=== PATIENT | male | born 1955 | race Caucasian/White ===

== ENCOUNTER → 2019-05-28 | Outpatient (CLI) | payer MEDICARE ==
[~2019-05-28] MED LIST: ARIP30 PO; CHOL10002 PO; CLON.5 PO; DULOXETINE 30 MG; LATUDA40 MG PO; LOXA10 PO; MECL25 PO; OMEP20ER PO; PRAZ2 PO; RANI150 PO; RISP2; RXLORA1 PO; VIIBRYD PO
[2019-05-28 19:04] LABS: U Amphetamine Screen Not Detected; U Barbituate Screen Not Detected; U Benzodiazapine Screen Not Detected; U Buprenorphine Screen Not Detected; U Cannabinoids Screen Not Detected; U Cocaine Screen Not Detected; U Methadone Screen Not Detected; U Methamphetamine Screen Not Detected; U Opiates Screen Not Detected; U Oxycodone Screen Not Detected; U Phencyclidine Screen Not Detected; U Propoxyphene Screen Not Detected
== END | disposition home or self-care (01) ==
LOC: LAB SHORT 13:15 → LAB 13:15
PROVIDERS: Registered Nurse Psychiatric/Mental Health
DX: Z51.81 Encounter for therapeutic drug level monitoring (principal); Z79.899 Other long term (current) drug therapy

== ENCOUNTER 2024-05-06 17:43 | Emergency (ER) | payer MEDICARE ==
[~2024-05-06] VITALS: Ht 172.7 cm; Wt 104.3 kg
[2024-05-06 17:53] VITALS: BP 172/97
== END 2024-05-06 18:03 | disposition home or self-care (01) ==
LOC: ER 17:43
DX: F41.0 Panic disorder [episodic paroxysmal anxiety] (principal); R09.89 Other specified symptoms and signs involving the circulatory and respiratory systems; Z88.5 Allergy status to narcotic agent; Z88.8 Allergy status to other drugs, medicaments and biological substances; Z79.899 Other long term (current) drug therapy
CPT/HCPCS: 99282